=== PATIENT | male | born 1955 | race Caucasian/White ===

== ENCOUNTER 2017-05-21 08:31 | Inpatient (IN) | payer OTHER ==
[2017-05-07 10:36] VITALS: BMI 33.0
--- NOTE | 2017-05-07 11:06 | PAT Medication Instructions ---
Service Date May 07, 2017. Current Home Medication List Dipyridamole/Aspirin (Aggrenox 25-200 mg), 1 CAP PO BID Fenofibrate (Tricor), 160 MG PO QAM Meloxicam (Mobic), 15 MG PO QAM Omeprazole (Prilosec), 20 MG PO QAM Ramipril (Altace), 20 MG PO QAM Medication Instructions For Your Scheduled Surgery -Contact your prescriber and your adjunct political science instructor for instructions for: Dipyridamole/Aspirin (Aggrenox 25-200 mg), 1 CAP PO BID--FOR SPINAL ANESTHESIA MUST BE HELD FOR AT LEAST 7 DAYS - Hold the following medications 7 days prior to surgery per your surgeon's instructions: Meloxicam (Mobic), 15 MG PO QAM - Hold the following medications the morning of surgery: Ramipril (Altace), 20 MG PO QAM Fenofibrate (Tricor), 160 MG PO QAM - Take the following medications the morning of surgery with a sip of water: Omeprazole (Prilosec), 20 MG PO QAM If you have any questions please call us at [phone] or [phone] or [phone]
--- NOTE | 2017-05-07 11:48 | DIAGNOSTIC IMAGING REPORT ---
CHEST 2 VIEWS ROUTINE CLINICAL HISTORY: PAT preoperative evaluation COMPARISON STUDY: No previous studies for comparison. FINDINGS: The bones soft tissues and hemidiaphragms are normal. The cardiomediastinal silhouette is normal. The lungs are clear. The pulmonary vasculature is normal. IMPRESSION: Negative chest. The above report was generated using voice recognition software. It may contain grammatical, syntax or spelling errors. Electronically signed by: Brooks Xiao M.D. 05/07/2017 11:47 AM Dictated Date/Time: 05/07/2017 11:47 AM
[2017-05-07 13:47] LABS: PTT PATIENT 24.7 SECONDS (21.0-31.0)
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
[2017-05-21] VITALS (8 sets, daily range): BP systolic 101–152; BP diastolic 64–93; PULSE 74–84; TEMP 36.5–36.8; O2SAT 95–99; Ht 171.4 cm; Wt 93.0 kg
[~2017-05-21] VITALS: Ht 171.4 cm; Wt 93.0 kg
--- NOTE | 2017-05-21 08:11 | History & Physical Bridge Note ---
H&P Re-Evaluation Bridge Note: I have examined the patient, reviewed the History & Physical and in the interval since the performance of the History & Physical I have noted the following changes of clinical significance: No changes noted
[~2017-05-21 08:31] MED LIST: ACETAMINOPHEN 500 MG TAB PO SCH; AGG PO; ALT/10 PO; BUPIVACAINE 0.5 % 5 MG/1 ML PF 10ML VIAL ONE; CEFAZOLIN 2000MG IV PUSH 15 ML IV SCH; CeleBREX 200 MG CAP PO SCH; DEXAMETHASONE 4 MG TAB PO SCH; FENO160T PO; GABAPENTIN 300 MG CAP PO SCH; LACTATED RINGER'S 1000ML 1,000 ML IV SCH; LACTATED RINGER'S 1000ML 500 ML IV SCH; MELO7.5T5 PO; METOCLOPRAMIDE HCL 10 MG TAB PO SCH; MIDAZOLAM HCL 1 MG/ML 2ML VIAL ONE; PRLSR20 PO; ROPIVACAINE 5MG/ML 30 ML 150 MG, BUPIVACAINE 0.5% MPF INJ 30 ML, EpINEphrine HCL INJ 0.... INFIL SCH
[2017-05-21] MEDS ORDERED: SERT50TA PO (08:49)
[2017-05-21] MEDS ORDERED: LIDOCAINE HCL 2% 2 ML VIAL (20MG/ML) ONE ×2 (09:07→10:00)
[2017-05-21] MEDS ORDERED: PROPOFOL IV EMULSION 10 MG/ML 20 ML VIAL IV ONE ×2 (09:07→10:00)
[2017-05-21] MEDS ORDERED: ORTHO JOINT ANESTHETIC ONE (09:54)
[2017-05-21] MEDS ORDERED: POVIDONE-IODINE OP SOLN 30 ML BTL ONE (09:54)
[2017-05-21] MEDS ORDERED: BACITRACIN 50000 UNIT VIAL ONE (09:54)
[2017-05-21] MEDS ORDERED: ONDANSETRON INJ 2 MG/ML 2 ML VIAL ONE (10:00)
[2017-05-21] MEDS ORDERED: FENTANYL CITRATE INJ 50 MCG/1 ML 2 ML VIAL ONE ×2 (10:00→10:59)
[2017-05-21] MEDS ORDERED: DEXAMETHASONE SOD INJ 4 MG/ML VIAL ONE (10:00)
[2017-05-21] MEDS ORDERED: ONDANSETRON INJ 2 MG/ML 2 ML VIAL IV PRN ×2 (10:15→12:15)
[2017-05-21] MEDS ORDERED: ATROPINE SULFATE 0.1 MG/ML 5ML SYR IV PRN (10:15)
[2017-05-21] MEDS ORDERED: FENTANYL CITRATE INJ 50 MCG/1 ML 2 ML VIAL IV PRN (10:15)
[2017-05-21] MEDS ORDERED: EpHEDrine SULFATE INJ 50 MG/ML AMP IV PRN (10:15)
[2017-05-21] MEDS ORDERED: BUPIVACAINE 0.25% 30 ML VIAL ONE (10:19)
--- NOTE | 2017-05-21 11:28 | [facility] Post Operative Brief Note ---
Immediate Operative Summary Operative Date May 21, 2017. Pre-Operative Diagnosis Degenerative Joint Disease, Right Knee Post-Operative Diagnosis Degenerative Joint Disease, Right Knee Procedure(s) Performed Right Total Knee Arthroplasty Surgeon Dr Velazco Rn Gynecology Surgeon(s) Pb Kilpatrick PA-C Estimated Blood Loss 5ml Findings Consistent with Post-Op Diagnosis Specimens A: Right Knee Bone and Tissue Anesthesia Type General Complication(s) none Disposition Disposition: Recovery Room / PACU
--- NOTE | 2017-05-21 11:31 | [facility] Operative Report ---
Operative Report Operative Date May 21, 2017. Pre-Operative Diagnosis Degenerative Joint Disease, Right Knee Post-Operative Diagnosis Degenerative Joint Disease, Right Knee Procedure(s) Performed Right Total Knee Arthroplasty utilizing Polanco & Nephew journey 2 nonlocked total knee arthroplasty 5 femur 5 tibia 11 Becca [address] Velazco Merchandise Collector Surgeon(s) Pb Kilpatrick PA-C Estimated Blood Loss 5ml Findings Patient presents with severe end-stage DJD varus alignment of the right knee Nourse wants to conservative therapy for right total knee arthroplasty after failing conservative management including injections anti-inflammatories relative rest activity modification patient presents for right total knee arthroplasty Specimens A: Right Knee Bone and Tissue Anesthesia Type General Complication(s) none Disposition Recovery Room / PACU Indications Patient presents with severe end-stage DJD varus alignment subchondral cystic changes sclerosus or osteophytes [id number] changes patient been Nourse wants to conservative therapy Description of Procedure After proper prepping and draping of the Right lower extremity anterior midline incision was made over the region of the extensor extensor mechanism after meticulous hemostasis was obtained and maintained in subcutaneous tissues a medial parapatellar incision was made The patella was subluxed lateralward the medial lateral gutter were cleaned from any hypertrophic synovitis and scar tissue of the distal femoral block was placed and the distal femoral osteotomy cut was made subsequently the chamfers anterior and posterior osteotomy cuts were made utilizing the 4-in-1 block the tibia was subsequently subluxed anteriorward medial and ateral meniscal remnants were excised in their entirety remnants of the anterior and posterior cruciate ligaments were excised in their entirety excellent exposure of the proximal tibia was obtained the tibial osteotomy guide was placed on the proximal tibial osteotomy cut was made once again the knee was irrigated with copious amounts of sterile saline solution the patella was subsequently everted lateralward thickened scar tissue around the patella was removed the patella was subsequently cut utilizing a freehand technique and was drilled prepared for final preparation and placement of patella socially flexion-extension gaps were checked and the equal and symmetric trials were placed to the appropriate femoral and tibial trials with poly-spacer being placed for equal flexion and extension gaps and full range of motion including extension to 0 and flexion to 140 the trial components after having been taken to recovery range of motion was subsequently removed meticulous hemostasis was obtained and maintained subsequently a knee block injection of joint cocktail including ropivacaine 0.5% 150 mg. Bupivacaine 0.5 % epinephrine 1-200,030 mL's toradol 30 mg dexamethasone 4 mg ketamine 10 mg clonidine 100 micrograms normal saline solution 30 mg was infiltrated into the soft tissues of the posterior knee medial lateral gutters and periosteal synovium special attention was paid to protect neurovascular structures at all times subsequently trial components having been removed the knee was irrigated with sterile saline solution. debris was removed the proximal tibia was subsequently prepared and was made ready for the placement of the tibial component tibial component was also cemented and tamped into position the femoral component was subsequently placed and cemented in the position the patellar component was subsequently cemented in position because hemostasis once again obtained and maintained wound having been thoroughly irrigated with debridement and debridement lavage was performed as well as a medial parapatellar incision closed with #1 Vicryl in interrupted fashion subcutaneous was closed with #2 Vicryl skin was closed with skin clips. PA-C was necessary for prepping and drapping as well as wound closure of deep fascia Sub cutaneous tissue and skin and was necessary for the case. A sterile compressive dressing was placed patient was taken to recovery in stable condition of report dictated by Juan A I attest to the content of the Intraoperative Record and any orders documented therein. Any exceptions are noted below. I attest to the content of the Intraoperative Record and any orders documented therein. Any exceptions are noted below.
[2017-05-21] MEDS ORDERED: TRAMADOL HCL 50 MG TAB PO PRN (12:15)
[2017-05-21] MEDS ORDERED: MoRPHine SULFATE 2 MG/ML CARP IV PRN (12:15)
[2017-05-21] MEDS ORDERED: MAGNESIUM HYDROXIDE SUSP 30 ML UDC PO PRN (12:15)
[2017-05-21] MEDS ORDERED: ALUMINUM/MAGNESIUM/SIMETH (MAALOX MAX) 30 ML UDC PO PRN (12:15)
--- NOTE | 2017-05-21 12:40 | Anesthesiology Progress Note ---
Anesthesia Post Op Note Date & Time May 21, 2017 at 12:40 Vital Signs Pain Intensity: 2 Vital Signs Past 12 Hours Date Time Temp Pulse Resp B/P (MAP) Pulse Ox O2 Delivery O2 Flow Rate FiO2 05/21/17 12:30 81 10 145/100 98 Oxymask 10 05/21/17 12:20 73 17 122/101 98 Oxymask 10 05/21/17 12:10 36.0 74 15 142/100 100 Oxymask 10 05/21/17 08:55 36.5 74 18 152/92 99 Room Air Notes Mental Status: alert / awake / arousable, participated in evaluation Pt Amnestic to Procedure: Yes Nausea / Vomiting: adequately controlled Pain: adequately controlled Airway Patency, RR, SpO2: stable & adequate BP & HR: stable & adequate Hydration State: stable & adequate Anesthetic Complications: no major complications apparent
--- NOTE | 2017-05-21 12:45 | DIAGNOSTIC IMAGING REPORT ---
R KNEE 1 OR 2 VIEWS ROUTINE CLINICAL HISTORY: 61 years-old Male presenting with AP/LATERAL IN PACU RIGHT KNEE. TECHNIQUE: Frontal and lateral views of the right knee were obtained. COMPARISON: None. FINDINGS: Postsurgical changes of total right knee arthroplasty with patellar resurfacing. Expected intra-articular and soft tissue emphysema. A surgical drain is in place. Overlying skin matthias. No area prosthetic fracture. No malalignment. No hardware complication. IMPRESSION: Expected postoperative findings status post total right knee arthroplasty with patellar resurfacing. Electronically signed by: Augustin Garcia M.D. 05/21/2017 12:44 PM Dictated Date/Time: 05/21/2017 12:43 PM
[2017-05-21] MEDS: ACETAMINOPHEN 500 MG TAB PO SCH ×2 (14:06→21:45)
[2017-05-21] MEDS: D5W AND 1/2NSS + 20MEQ KCL 1,000 ML IV SCH ×2 (14:06→23:36)
[2017-05-21] MEDS: OXYCODONE HCL IR 5 MG TAB (IMMEDIATE RELEASE) PO PRN (15:57)
[2017-05-21] MEDS: CEFAZOLIN IV 2,000 MG in SYRINGE 0 ML IV SCH (18:19)
[2017-05-21] MEDS: FERROUS GLUCONATE 324 MG TAB PO SCH (18:19)
[2017-05-21] MEDS: SENNA 8.6 MG TAB PO SCH (21:02)
[2017-05-21] MEDS: DIPYRIDAMOLE/ASPIRIN CAP PO SCH (21:03)
[2017-05-21] MEDS: ASPIRIN 81 MG ECTAB PO SCH (21:03)
[2017-05-21] MEDS: CeleBREX 200 MG CAP PO SCH (21:03)
[2017-05-21] MEDS: DOCUSATE SODIUM 100 MG CAP PO SCH (21:03)
[2017-05-22] VITALS (7 sets, daily range): BP systolic 93–118; BP diastolic 59–77; PULSE 73–85; TEMP 36.4–36.8; O2SAT 95–99
[2017-05-22] MEDS: CEFAZOLIN IV 2,000 MG in SYRINGE 0 ML IV SCH (01:34)
[2017-05-22] MEDS: OXYCODONE HCL IR 5 MG TAB (IMMEDIATE RELEASE) PO PRN ×3 (01:35→19:33)
[2017-05-22] MEDS: ACETAMINOPHEN 500 MG TAB PO SCH ×3 (05:45→20:35)
[2017-05-22 06:43] LABS: HEMATOCRIT 28.5 % (42-52); HEMOGLOBIN 9.9 g/dL (14.0-18.0); MEAN CELL VOLUME 89.6 fL (80-100); MEAN CORPUSCULAR HEMOGLOBIN 31.1 pg (25-34); MEAN CORPUSCULAR HGB CONC 34.7 g/dl (32-36); MEAN PLATELET VOLUME 9.9 fL (7.4-10.4); PLATELET COUNT 208 K/uL (130-400); RED CELL DISTRIBUTION WIDTH CV 12.8 % (11.5-14.5); RED CELL DISTRIBUTION WIDTH SD 41.3 fL (36.4-46.3); WHITE BLOOD COUNT 9.83 K/uL (4.8-10.8)
[2017-05-22 07:19] LABS: CALCIUM 7.9 mg/dl (8.5-10.1); CREATININE 1.22 mg/dl (0.60-1.40); POTASSIUM 5.3 mmol/L (3.5-5.1)
--- NOTE | 2017-05-22 07:52 | Orthopedic Progress Note ---
Orthopedic Progress Note Date of Service May 22, 2017. Subjective Post OP Day: 1 Reports: feeling well, Denies: chest pain, SOB, nausea / vomiting, light headedness, calf pain Objective calves soft nontender, N/V intact, dressing C/D/I, A&O x3, toes mobile, hemovac drainage (150ml latest shift; 1100ml to date) Date Time Temp Pulse Resp B/P (MAP) Pulse Ox O2 Delivery O2 Flow Rate FiO2 05/22/17 07:11 36.8 75 16 109/74 (86) 96 Room Air 05/22/17 04:05 36.6 73 16 118/75 (89) 97 Room Air 05/21/17 23:50 Room Air 05/21/17 22:55 36.6 78 16 101/64 (76) 96 Room Air 05/21/17 20:24 36.6 84 18 104/66 (79) 95 Room Air 05/21/17 15:58 36.6 83 16 118/74 (89) 97 Room Air 05/21/17 15:45 Nasal Cannula 2.0 05/21/17 15:00 36.7 80 17 111/76 (88) 98 Nasal Cannula 2.0 05/21/17 14:09 36.8 77 18 113/71 (85) 98 Nasal Cannula 2.0 05/21/17 13:43 36.5 75 16 127/93 (104) 99 Nasal Cannula 2.0 05/21/17 13:00 Nasal Cannula 2.0 05/21/17 13:00 Nasal Cannula 2.0 05/21/17 13:00 36.8 80 16 120/75 (90) 98 Nasal Cannula 2.0 05/21/17 12:50 36.5 79 14 106/81 98 Nasal Cannula 2 05/21/17 12:40 77 12 119/71 98 Nasal Cannula 2 05/21/17 12:30 81 10 145/100 98 Oxymask 10 05/21/17 12:20 73 17 122/101 98 Oxymask 10 05/21/17 12:10 36.0 74 15 142/100 100 Oxymask 10 05/21/17 08:55 36.5 74 18 152/92 99 Room Air Laboratory Results 24 Hours: Test 05/22/17 06:13 Hematocrit 28.5 % Hemoglobin 9.9 g/dL Assessment & Plan Assessment: POD 1 s/p Right TKA Plan: PT/OT today Plan for dc tomorrow Inhouse Planning Pain Management: Ultram, Morphine, PO Tylenol, Oxy IR DVT Prophylaxis: TEDs, SCDs, ASA, other (Aggrenox)
[2017-05-22] MEDS: DOCUSATE SODIUM 100 MG CAP PO SCH ×2 (09:14→20:34)
[2017-05-22] MEDS: DIPYRIDAMOLE/ASPIRIN CAP PO SCH ×2 (09:14→20:35)
[2017-05-22] MEDS: FERROUS GLUCONATE 324 MG TAB PO SCH ×3 (09:14→17:49)
[2017-05-22] MEDS: CeleBREX 200 MG CAP PO SCH ×2 (09:14→20:35)
[2017-05-22] MEDS: MULTIVITAMIN TAB PO SCH (09:15)
[2017-05-22] MEDS: ASPIRIN 81 MG ECTAB PO SCH (09:15)
[2017-05-22] MEDS: ENALAPRIL MALEATE 10 MG TAB PO SCH (09:16)
[2017-05-22] MEDS: SERTRALINE HCL 50 MG TAB PO SCH (09:16)
[2017-05-22] MEDS: D5W AND 1/2NSS + 20MEQ KCL 1,000 ML IV SCH (09:18)
[2017-05-22] MEDS: SENNA 8.6 MG TAB PO SCH (20:35)
[2017-05-23] MEDS: ACETAMINOPHEN 500 MG TAB PO SCH (05:40)
[2017-05-23 06:36] VITALS: BP 107/66; PULSE 76; TEMP 36.5; O2SAT 98
--- NOTE | 2017-05-23 07:16 | Orthopedic Progress Note ---
Orthopedic Progress Note Date of Service May 23, 2017. Subjective Post OP Day: 2 Reports: feeling well, pain controlled w PO medications, Denies: complaints, chest pain, SOB, nausea / vomiting, light headedness, calf pain Objective calves soft nontender, N/V intact, capillary refill less than 2 sec., dressing C /D/I (silverlon intact), A&O x3, toes mobile Date Time Temp Pulse Resp B/P (MAP) Pulse Ox O2 Delivery O2 Flow Rate FiO2 05/23/17 06:36 36.5 76 16 107/66 (80) 98 Room Air 05/22/17 23:30 Room Air 05/22/17 23:21 115/70 (85) 05/22/17 23:18 36.4 74 16 93/59 (70) 98 Room Air 05/22/17 15:45 36.6 76 18 102/63 (76) 95 Room Air 05/22/17 15:30 95 Room Air 05/22/17 10:46 36.5 85 16 117/77 (90) 99 05/22/17 07:30 Room Air Assessment & Plan Assessment: POD 2 s/p Right TKA Plan: PT/OT today Plan for dc after PT today dvt proph with jackie/scd/asa Discharge Planning Discharge Planning: home with home health DVT Prophylaxis: TEDs, SCDs, ASA Therapy: Physical Therapy
--- NOTE | 2017-05-23 07:17 | Discharge Instructions ---
Discharge Instructions Date of Service May 23, 2017. Admission Reason for Admission: Right Knee Osteoarthritis Discharge Discharge Diagnosis / Problem: right total knee replacement Discharge Goals Goal(s): Decrease discomfort, Improve function, Increase independence Activity Recommendations Activity Limitations: as noted below Weightbearing Status: Right weightbearing (as tolerated) . Instructions / Follow-Up Instructions / Follow-Up ACTIVITY RECOMMENDATIONS: SELF CARE INSTRUCTIONS AFTER TOTAL KNEE REPLACEMENT A. You may need to continue a physical therapy program after discharge from the hospital. There are several options available to you. Your doctor will assist you in selecting the best one for you. 1. An out-patient facility 2 to 3 times a week for therapy or home therapy. 2. Continue working on all exercises taught to you in the hospital. Your goals should be to increase bending of your knee to 90 degrees and beyond and to fully straighten your knee. B. You may progress at your own pace from walking with a walker or crutches to a cane; then to no assistive devices. C. Make walking a part of your daily routine. Be up as much as comfortable with rest periods throughout the day. Rest with leg elevation is very important. Use the ice wrap frequently for the first 3-4 weeks. D. There are no restrictions on activities. You may ride in a car, shop, participate in tool adjuster and all social activities. E. Wear the long elastic stockings (JENNIE hose) 20 hours a day for 2 weeks after surgery. They can be removed several times a day for laundering and for a bath. F. You may shower, no tub baths until cleared by your doctor. SPECIAL CARE INSTRUCTIONS: VERY IMPORTANT TO READ AND REVIEW A. There are a few signs you need to watch for after you are home. Call [facility] if you notice any of the followin. Increased severe knee pain. Some pain is expected especially when you exercise. 2. Increased swelling in your leg or knee; pain or swelling of the calf muscle in either lower leg. 3. Any fluid drainage from the incision. 4. Shortness of breath or chest pain. B. Please call [facility] at if you have any concerns or questions about your operation or recovery. The doctor or his nurse will return your call promptly. C. You must take antibiotics before dental work, bladder, bowel or other surgery. Your doctor will provide you with a permanent care to carry describing this precaution. IMPORTANT: * REMEMBER TO TAKE ASPIRIN, 81 MG, TWICE DAILY FOR 4 WEEKS UNLESS OTHERWISE DIRECTED. THIS IS YOUR BLOOD THINNER. * HIGH RISK PATIENTS MAY BE PRESCRIBED A STRONGER BLOOD THINNER. THIS WILL BE PROVIDED AT DISCHARGE. * CALL IF INCREASED PAIN, REDNESS, DRAINAGE OR FEVER GREATER THAT 101. * WEAR JENNIE HOSE 20 HOURS PER DAY FOR 2 WEEKS. * YOU MAY HAVE A LARGE BAND-AID LIKE DRESSING (SILVERON). THIS WILL REMAIN ON YOUR INCISION FOR 7 DAYS, THEN CAN BE REMOVED. IF INCISION IS LEAKING THROUGH DRESSING, CALL THE OFFICE . FOLLOW UP VISIT: If appointment is not already scheduled: Please call [facility] to make a follow-up appointment for 2 weeks after your surgery at . Current Hospital Diet Patient's current hospital diet: Regular Diet Discharge Diet Recommended Diet: Regular Diet Procedures Procedures Performed: Right Total Knee Arthroplasty utilizing Polanco & Nephew journey 2 nonlocked total knee arthroplasty 5 femur 5 tibia 11 Becca 32 oval patella Pending Studies Studies pending at discharge: no Laboratory Results Hemoglobin A1c Test 05/07/17 11:16 Range/Units Estimated Average Glucose 126 mg/dl Hemoglobin A1c 6.0 H 4.5-5.6 % Medical Emergencies . Who to Call and When: Medical Emergencies: If at any time you feel your situation is an emergency, please call [phone] immediately. . Non-Emergent Contact Non-Emergency issues call your: Primary Care Provider, Surgeon . "Provider Documentation" section prepared by Brooks Rodriguez. . VTE Core Measure Inpt VTE Proph given/why not?: Other Anticoagulation (ASA 81mg po bid x 1 month ), TNancy Malik, SCD's [place] Drug Monitoring Program Search Results: patient reviewed within database, no issues identified
[2017-05-23] MEDS ORDERED: ASPEC81 PO (07:20)
[2017-05-23] MEDS ORDERED: ACET-24 PO (07:20)
[2017-05-23] MEDS ORDERED: ONDA8TAB6 PO (07:20)
[2017-05-23] MEDS ORDERED: RXC5 PO (07:20)
[2017-05-23] MEDS ORDERED: CLB200 PO (07:20)
[2017-05-23] MEDS ORDERED: CLC100 PO (07:20)
[2017-05-23] MEDS ORDERED: PANTOprazole SOD 40 MG TAB PO STA (07:21)
[2017-05-23] MEDS: OXYCODONE HCL IR 5 MG TAB (IMMEDIATE RELEASE) PO PRN ×2 (07:41→11:55)
[2017-05-23] MEDS: CeleBREX 200 MG CAP PO SCH (07:42)
[2017-05-23] MEDS: FERROUS GLUCONATE 324 MG TAB PO SCH ×2 (07:42→12:26)
[2017-05-23] MEDS: SERTRALINE HCL 50 MG TAB PO SCH (07:42)
[2017-05-23] MEDS: DIPYRIDAMOLE/ASPIRIN CAP PO SCH (07:43)
[2017-05-23] MEDS: DOCUSATE SODIUM 100 MG CAP PO SCH (07:43)
[2017-05-23] MEDS: ENALAPRIL MALEATE 10 MG TAB PO SCH (07:44)
[2017-05-23] MEDS: MULTIVITAMIN TAB PO SCH (07:44)
[2017-05-23 07:53] VITALS: O2SAT 99
[2017-05-23] MEDS ORDERED: ASPIRIN 81 MG ECTAB PO SCH (09:00)
[2017-05-23 09:10] VITALS: BP 107/66; PULSE 76; TEMP 36.5; O2SAT 99
--- NOTE | 2017-05-26 10:56 | DISCHARGE SUMMARY ---
DISCHARGE DIAGNOSIS: Degenerative joint disease, right knee. SECONDARY DIAGNOSES: History of transient ischemic attack and hypertension. CONSULTS: None. COMPLICATIONS: None. PROCEDURES: Right total knee arthroplasty performed by Dr. Velazco on 05/21/2017. BRIEF HISTORY: As dictated in history and physical. HOSPITAL SUMMARY: The patient was admitted on the above date and had the above known surgery performed which he tolerated well. On his first postoperative day, he was feeling well and had no complaints. Calves were soft, nontender, neurovascularly intact. Dressings clean, dry and intact. Toes were mobile. Vital signs were stable. He was afebrile. He had a noted a load of 100 mL of drainage to date at that time; however, his drainage had slowed down considerably from the evening prior. Hemoglobin was 9.9, vital signs were stable and he was started on physical therapy protocol and continued on DVT prophylaxis and pain management. By his second postoperative day, he was feeling well and pain was controlled. He had no complaints. Calves were soft, nontender. Neurovascularly intact. Dressings were intact. Toes were mobile. Vital signs were stable. He was afebrile. He was progressing with his physical therapy and remaining stable and it was felt he could be discharged to home. For further review, please see chart. LABORATORY AND X-RAY DATA: As per chart. DISCHARGE INSTRUCTIONS: The patient was discharged to home in satisfactory condition on 05/23/2017. DIET: Regular. ACTIVITY: Weightbearing as tolerated right lower extremity. Follow TK instruction sheets and special care instructions as noted. FOLLOWUP: Follow up with Dr. Velazco in 2 weeks. The patient to call for appointment if one has not been made for you. DISCHARGE MEDICATIONS: Acetaminophen 1000 mg p.o. q. 8 hours, aspirin 81 mg p.o. daily, Celebrex 200 mg p.o. b.i.d., Colace 100 mg p.o. b.i.d., Zofran 8 mg p.o. q. 8 hours p.r.n., oxycodone 5-10 mg p.o. q. 4 hours p.r.n.; resume home meds as listed including Aggrenox 25/200 one cap p.o. b.i.d., omeprazole 20 mg p.o. q.a.m., ramipril 20 mg p.o. q.a.m., sertraline 50 mg p.o. daily and TriCor 160 mg p.o. q.a.m. Stop taking Meloxicam.
== END 2017-05-23 12:45 | disposition home health service (06) | DRG 470 ==
LOC: C.ACU 08:31 → C.3E 08:40 → ENRESERV 12:39
PROVIDERS: ADMIT Orthopaedic Surgery; ATTEND Orthopaedic Surgery
PROC: 0SRC0J9 Replacement of Right Knee Joint with Synthetic Substitute, Cemented, Open Approach (ICD-10-PCS; principal; 2017-05-21 10:45)
DX: M17.11 Unilateral primary osteoarthritis, right knee (principal); I10 Essential (primary) hypertension; Z79.899 Other long term (current) drug therapy; Z79.02 Long term (current) use of antithrombotics/antiplatelets; Z86.73 Personal history of transient ischemic attack (TIA), and cerebral infarction without residual deficits